=== PATIENT | female | born 2000 | race Caucasian/White ===

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

== ENCOUNTER 2019-02-05 17:33 | Emergency (ER) | payer OTHER ==
[~2019-02-05] VITALS: Ht 165.1 cm; Wt 92.7 kg
[~2019-02-05 17:33] MED LIST changes: +IBUP-1542 PO
[2019-02-05 17:38] VITALS: BP 126/66; PULSE 89; RESP 20; Ht 165.1 cm; Wt 92.7 kg
[2019-02-05] MEDS ORDERED: ACETAMINOPHEN 500 MG TAB PO STA (18:05)
[2019-02-05] MEDS ORDERED: KETOROLAC 60 MG INJ IM STA (18:05)
[2019-02-05] MEDS ORDERED: NAPR-985 PO (19:07)
[2019-02-05] MEDS ORDERED: PRED20TA PO (19:08)
[2019-02-05] MEDS ORDERED: DEXAMETHASONE 10 MG/ML 1 ML INJ IM ONE (19:30)
--- NOTE | 2019-02-05 20:19 | ERD ---
ER Documentation Chief Complaint Chief Complaint Complains of severe back pain x 2 weeks HPI History of Present Illness: Otherwise healthy,obese 18-year-old female who presents the ED with complaints of lower back pain has been present for 2 weeks. Patient reports coming to [facility] ER last month for the same complaint after lifting heavy dough at work. Patient reports that she did not follow-up outpatient with orthopedic or her primary care doctor as she was instructed to. Patient reports continuing to work in the same environment with what appears to be increase exacerbations of pain with work related items. Patient reports she no longer has radiation of pain that was previously present on her last visit to [facility]. No new trauma or injury or fall. No bladder or bowel incontinence. Denies dysuria, fever, chills. Denies any other associated symptoms. At home pharmacological/nonpharmacological treatment for symptoms: Ibuprofen, minor relief Denies social concerns; Denies recent foreign travel ROS All systems reviewed and are negative except as per history of present illness. Medications Home Meds Active Scripts Prednisone* (Prednisone*) 20 Mg Tab, 40 MG PO QAM for back pain/inflammation for 4 Days, TAB Prov:JUAN M VOSS NP 02/05/19 Naproxen* (Naprosyn*) 500 Mg Tablet, 500 MG PO BID PRN for PAIN AND/OR INFLAMMATION, #30 TAB Prov:JUAN M VOSS NP 02/05/19 Ibuprofen* (Ibuprofen*) 600 Mg Tablet, 600 MG PO Q6 for pain, #30 TAB Prov:NOMAN WARE PA-C 12/27/18 Ibuprofen* Susp (Motrin* Susp) 20 Mg/Ml Susp, 20 ML PO Q6H PRN for PAIN AND OR ELEVATED TEMP, #4 OZ Prov:JORGE ZARATE MD 01/26/16 Allergies Allergies: Coded Allergies: No Known Drug Allergies (Verified Allergy, Unknown, 01/26/16) PMhx/Soc History of Surgery: No Anesthesia Reaction: No Hx Neurological Disorder: No Hx Respiratory Disorders: No Hx Cardiac Disorders: No Hx Psychiatric Problems: No Hx Miscellaneous Medical Probl: No Hx Alcohol Use: No Hx Substance Use: No Hx Tobacco Use: No Smoking Status: Never smoker FmHx Family History: No diabetes, No coronary disease Physical Exam Vitals Vital Signs Date Temp Pulse Resp B/P (MAP) Pulse Ox O2 O2 Flow FiO2 Time Delivery Rate 02/05/19 98.8 89 20 126/66 99 17:38 (86) Physical Exam Const: No acute distress Head: Atraumatic Eyes: Normal Conjunctiva ENT: Normal External Ears, Nose and Mouth. Neck: Full range of motion. No meningismus. Resp: Clear to auscultation bilaterally Cardio: Regular rate and rhythm, no murmurs Abd: Soft, non tender, non distended. Normal bowel sounds Skin: No petechiae or rashes Back: No midline or flank tenderness; paraspinal tenderness noted to lumbar region of back, no grimacing noted on examination Ext: No cyanosis, or edema. BLE reflexes 2+. Motor strength 5/5. Sensation grossly intact. Neur: Awake and alert Psych: Normal Mood and Affect Results 24 hrs Laboratory Tests Test 02/05/19 18:23 02/05/19 18:28 Urine Color YELLOW Urine Clarity CLOUDY Urine pH 5.0 Urine Specific [place] 1.031 Urine Ketones NEGATIVE mg/dL Urine Nitrite NEGATIVE mg/dL Urine Bilirubin NEGATIVE mg/dL Urine Urobilinogen NEGATIVE mg/dL Urine Leukocyte Esterase NEGATIVE Candice/ul Urine Microscopic RBC 2 /HPF Urine Microscopic WBC 2 /HPF Urine Squamous Epithelial Cells MODERATE /HPF Urine Mucus FEW /HPF Urine Hemoglobin NEGATIVE mg/dL Urine Glucose NEGATIVE mg/dL Urine Total Protein NEGATIVE mg/dl POC Beta HCG, Qualitative NEGATIVE Current Medications Medications Dose Sig/Vianey Start Time Status Last (Trade) Ordered Route PRN Stop Time Admin Dose Reason Admin Ketorolac 60 mg ONCE STAT 02/05/19 DC 02/05/19 Tromethamine IM 18:05 18:47 (Toradol) 02/05/19 18:07 1,000 mg ONCE STAT 02/05/19 DC 02/05/19 Acetaminophen PO 18:05 18:46 (Tylenol 02/05/19 18:07 Tab) 10 mg ONCE ONCE 02/05/19 DC 02/05/19 Dexamethasone IM 19:30 19:19 (Decadron) 02/05/19 19:30 Procedures/MDM ED course includes a thorough examination and history. Medications: Ketorolac for pain/inflammation; dexamethasone for inflammation Imaging: --- No imaging done, no concern for bone etiology Labs: Urinalysis, urine Low suspicion for life-threatening medical emergency. Low suspicion for orthopedic or neurological emergency that requires hospitalization or immediate surgical intervention. Otherwise healthy patient presenting with constellation of symptoms likely representing uncomplicated lumbar strain secondary to injury of back at work as characterized by history, physical exam findings, lab findings. No leukocytosis or hematuria seen on urinalysis. No respiratory distress, otherwise relatively well appearing and nontoxic. Patient reassessment includes marked great improvement of lower back pain with use of NSAIDs only. Patient educated on diagnoses, prescriptions, follow-up care, return precautions. Strict return precautions given for worsening condition; questions answered discharge. Reiterated importance for follow-up with primary care doctor as well as orthopedics. Disposition for discharge with followup in 2 days with PCP/clinic. Departure Diagnosis: Primary Impression: Lumbar strain Encounter type: initial encounter Qualified Codes: S39.012A - Strain of muscle, fascia and tendon of lower back, initial encounter Additional Impression: Injury of back Encounter type: subsequent encounter Qualified Codes: S39.92XD - Unspecified injury of lower back, subsequent encounter Condition: Stable Patient Instructions: Back Sprain/Strain Referrals: [facility] ([facility]) [facility] YOU HAVE RECEIVED A MEDICAL SCREENING EXAM AND THE RESULTS INDICATE THAT YOU DO NOT HAVE A CONDITION THAT REQUIRES URGENT TREATMENT IN THE EMERGENCY DEPARTMENT. FURTHER EVALUATION AND TREATMENT OF YOUR CONDITION CAN WAIT UNTIL YOU ARE SEEN IN YOUR DOCTORS OFFICE WITHIN THE NEXT 1-2 DAYS. IT IS YOUR RESPONSIBILITY TO MAKE AN APPOINTMENT FOR FOLOW-UP CARE. IF YOU HAVE A PRIMARY DOCTOR --you should call your primary doctor and schedule an appointment IF YOU DO NOT HAVE A PRIMARY DOCTOR YOU CAN CALL OUR PHYSICIAN REFERRAL HOTLINE AT IF YOU CAN NOT AFFORD TO SEE A PHYSICIAN YOU CAN CHOSE FROM THE FOLLOWING [facility] [address] [facility]. [facility] [address] [facility]. [facility] [address] [facility]. [facility] [address] [facility] [address] [facility]. [facility]. [address] [facility] YOU HAVE RECEIVED A MEDICAL SCREENING EXAM AND THE RESULTS INDICATE THAT YOU DO NOT HAVE A CONDITION THAT REQUIRES URGENT TREATMENT IN THE EMERGENCY DEPARTMENT. FURTHER EVALUATION AND TREATMENT OF YOUR CONDITION CAN WAIT UNTIL YOU ARE SEEN IN YOUR DOCTORS OFFICE WITHIN THE NEXT 1-2 DAYS. IT IS YOUR RESPONSIBILITY TO MAKE AN APPOINTMENT FOR FOLOW-UP CARE. IF YOU HAVE A PRIMARY DOCTOR --you should call your primary doctor and schedule and appointment IF YOU DO NOT HAVE A PRIMARY DOCTOR YOU CAN CALL OUR PHYSICIAN REFERRAL HOTLINE AT . IF YOU CAN NOT AFFORD TO SEE A PHYSICIAN YOU CAN CHOSE FROM THE FOLLOWING [facility] INSTITUTIONS: [facility] [address] [place] [address] [facility] [address] [place] [address] [facility] [address] [place] [address] [facility] Ur[facility] Care 7 a.m.- 11 p.m. Every Day of the Week NO APPOINTMENT OR AUTHORIZATION NEEDED Additional Instructions: Thank you very much for allowing us to participate in your care. Your health and safety is our top priority at [facility]. It is important to read all discharge instructions and education provided in your discharge packet. Call your primary care doctor TOMORROW for an appointment during the next 2-4 days and bring all the information and medications prescribed. It is very important for you to follow-up with the orthopedic/back doctor Have prescriptions filled and follow precisely the directions on the label. Prednisone is a steroid; this medication will help with pain associated with inflammation. Your take this medication every day for the next 4 days. Naprosyn as an anti-inflammatory/pain medication; take this medication daily twice a day when you are having pain. You should try nonmedication type therapies for your pain including heating pad If the symptoms get worse and your provider is unavailable, return to the Emergency Department immediately. JUAN M VOSS NP Feb 05, 2019 20:19
== END 2019-02-05 19:28 | disposition home or self-care (01) ==
LOC: FTE 17:33
DX: S39.012A Strain of muscle, fascia and tendon of lower back, initial encounter (principal); X50.0XXA Overexertion from strenuous movement or load, initial encounter; Y92.9 Unspecified place or not applicable
CPT/HCPCS: 81001; 81025; 96372; J1100; J1885; Z7502; Z7610